=== PATIENT | female | born 1960 | race American Indian/Alaskan Native ===

== ENCOUNTER 2018-01-14 13:55 | Outpatient (CLI) | payer MEDICARE ==
--- NOTE | 2018-01-15 10:29 | Ultrasound Report ---
TRANSABDOMINAL AND TRANSVAGINAL PELVIC ULTRASOUND: 01/14/18 13:55:00 CLINICAL: Postmenopausal bleeding. FINDINGS: Transabdominal and transvaginal pelvic ultrasound demonstrated a normal size retroverted uterus measuring 8.9 x 3.4 x 5.3 cm. No uterine fibroid or mass is identified. However, the uterus is not optimally imaged on the endovaginal scan because of retroversion and distention of the urinary bladder. As result, small uterine fibroids may not be detected. The endometrium is normal and measures 4.5 AP thickness. Ovaries are not seen. No adnexal mass. No free fluid. Normal urinary bladder. IMPRESSION: A normal size uterus with normal endometrium. Small uterine fibroids cannot be excluded. Ovaries not identified.
== END 2018-01-14 13:56 | disposition home or self-care (01) ==
LOC: SPVWC 13:55
PROVIDERS: ATTEND Obstetrics & Gynecology
DX: N95.0 Postmenopausal bleeding (principal)
CPT/HCPCS: 76830; 76856